=== PATIENT | female | born 1970 | race Caucasian/White ===

== ENCOUNTER 2018-12-17 05:58 | Day surgery (SDC) | payer OTHER ==
[~2018-12-17] VITALS: Ht 177.8 cm; Wt 158.9 kg
[~2018-12-17 05:58] MED LIST: CHOL10002 PO; Citalopram HBr10 MG PO; DULO30; OMEP20ER PO; PROP80ER PO; Verotin-Gr Cap1 EACH PO; YASMIN BCP
--- NOTE | 2018-12-17 06:48 | NUR ---
PT ADMITTED TO [facility]. AGREES WITH PLANNED SURGER. LUNG SOUNDS CLEAR.
--- NOTE | 2018-12-17 09:55 | NUR ---
Discharge instructions reviewed with patient. Patient verbalizes understanding. Copy given to patient to take home. Patient up to Ambulate independently. Gait steady. ABLE TO VOID PROIR TO DISCHARGE. Discharged via wheelchair to private car for ride home.
--- NOTE | 2018-12-18 14:59 | NUR ---
12/18/18 1459 Lacey Moreno VERIFICATIONS: EDIT CHART.
== END 2018-12-17 22:54 | disposition home or self-care (01) ==
LOC: ORSCMMR 05:58 → ORD 07:30 → ORSCMMR 13:48
PROVIDERS: Obstetrics & Gynecology
PROC: 0UDB8ZX Extraction of Endometrium, Via Natural or Artificial Opening Endoscopic, Diagnostic (ICD-10-PCS; principal; 2018-12-17 07:30)
DX: N92.0 Excessive and frequent menstruation with regular cycle (principal); N94.6 Dysmenorrhea, unspecified; N71.1 Chronic inflammatory disease of uterus; I10 Essential (primary) hypertension; K21.9 Gastro-esophageal reflux disease without esophagitis; E66.01 Morbid (severe) obesity due to excess calories; Z68.43 Body mass index [BMI] 50.0-59.9, adult; Z79.899 Other long term (current) drug therapy
CPT/HCPCS: 88305; J0330; J0690; J1100; J1885; J2250; J2370; J2405; J2704; J3010; J7120

== ENCOUNTER → 2020-06-19 | Outpatient (CLI) | payer BC | LOC: LAB 14:21 → LAB SHORT 14:21 | DX: R30.9 Painful micturition, unspecified (principal); Z88.2 Allergy status to sulfonamides; Z88.8 Allergy status to other drugs, medicaments and biological substances | CPT/HCPCS: 87077; 87086; 87186 ==

== ENCOUNTER → 2022-07-19 | Outpatient (CLI) | payer BC ==
[2022-07-19 19:06] LABS: Bacteria Many /hpf; Red Blood Cells, Urine 0-2 /hpf (0-2); Squamous Epithelial Cells Rare /hpf (Few)
== END | disposition home or self-care (01) ==
LOC: LAB 16:16 → LAB SHORT 16:16
PROVIDERS: Internal Medicine
DX: R30.9 Painful micturition, unspecified (principal)
CPT/HCPCS: 81015; 87077; 87086; 87186

== ENCOUNTER → 2023-07-07 | Outpatient (CLI) | payer BC | LOC: LAB SHORT 16:57 → LAB 16:57 | DX: N39.0 Urinary tract infection, site not specified (principal) | CPT/HCPCS: 87077; 87086; 87186 ==

== ENCOUNTER → 2024-07-30 | Outpatient (CLI) | payer BC ==
[~2024-07-30] MED LIST changes: +AMOCLA875 PO
== END ==
LOC: LAB 08:28 → PLD 08:28 → LAB SHORT 08:28
DX: R87.618 Other abnormal cytological findings on specimens from cervix uteri (principal)
CPT/HCPCS: 88305